=== PATIENT | female | born 1980 | race Caucasian/White ===

== ENCOUNTER 2019-08-23 07:30 | Day surgery (SDC) | payer OTHER ==
[2019-08-22 09:52] VITALS: BMI 29.9
[2019-08-23 08:13] LABS: BASO % 0.6 % (0-2.0); EOS % 3.9 % (0-4.5); HEMOGLOBIN 13.2 GM/dL (10.7-15.3); LYMPH % 35.2 % (8-40); MCH 30.4 pg (25.7-33.7); MCHC 34.8 g/dl (32.0-36.0); MEAN CELL VOLUME 87.3 fl (80-96); MEAN PLT VOLUME 7.6 fl (7.5-11.1); MONO % 9.8 % (3.8-10.2); NEUT % 50.5 % (42.8-82.8); PLATELET COUNT 489 K/MM3 (134-434); RBC 4.35 M/mm3 (3.60-5.2); RDW 12.7 % (11.6-15.6); WHITE BLOOD COUNT 9.1 K/mm3 (4.0-10.0)
[2019-08-23 08:20] LABS: EPI CELLS 6.8 /HPF (0-5/HPF); HYALINE CASTS 20 /lpf (0-8); URINE APPEARANCE CLOUDY; URINE BACTERIA 38.7 /hpf (NEGATIVE); URINE BILIRUBIN NEGATIVE (NEGATIVE); URINE COLOR YELLOW; URINE GLUCOSE (UA) NEGATIVE (NEGATIVE); URINE KETONE NEGATIVE (NEGATIVE); URINE LEUK ESTERASE 1+ (NEGATIVE); URINE NITRITE NEGATIVE (NEGATIVE); URINE PROTEIN NEGATIVE (NEGATIVE); URINE RBC 4 /hpf (0-4); URINE UROBILINOGEN 0.2 mg/dL (0.2-1.0); URINE WBC 36 /hpf (0-5)
[2019-08-23] MEDS ORDERED: MIDAZOLAM HCL 2 MG/2 ML SINGLE DOSE VIAL ONE (08:39)
[2019-08-23] MEDS ORDERED: LIDOCAINE HCL/PF 2% SDV 5ML VIAL ONE (08:39)
[2019-08-23] MEDS ORDERED: PROPOFOL 20 ML ONE (08:39)
[2019-08-23 09:05] LABS: ALBUMIN 3.9 g/dl (3.4-5.0); BILIRUBIN,TOTAL 0.4 mg/dL (0.2-1); BLOOD UREA NITROGEN 13.1 mg/dL (7-18); CALCIUM 8.8 mg/dL (8.5-10.1); CREATININE 0.7 mg/dL (0.55-1.3); TOT PROT 7.6 g/dl (6.4-8.2)
[2019-08-23 09:33] LABS: HCG,QUALITATIVE URINE Positive
[2019-08-23] MEDS ORDERED: ACETAMINOPHEN 325 MG TABLET (FP) PO PRN (09:48)
[2019-08-23] MEDS ORDERED: IBUPROFEN 400 MG TABLET (FP) PO PRN (09:48)
--- NOTE | 2019-08-23 09:48 | HP ---
Satellite [facility] - Chief Complaint Chief Complaint: Missed History of Present Illness: 37 yo G P with usg showng missed for DC History Source: Patient Limitations to Obtaining History: No Limitations - Past Medical History Allergies/Adverse Reactions: Allergies Allergy/AdvReac Type Severity Reaction Status Date / Time No Known Allergies Allergy Verified 08/23/19 08:51 ...LMP: 06/01/19 - Current Medications Current Medications: Home Medications Medication Instructions Recorded Amoxicillin - [Amoxicillin 500mg 500 mg PO BID 08/22/19 Capsule -] Satellite Physical Exam - Physical Examination Vital Signs: Vital Signs Period Temp Pulse Resp BP Sys/Molina Pulse Ox Last 24 Hr 96 16 124/78 99 General Appearance: Well Nourished, Well Developed Lung: Clear to auscultation Heart: Regular rate & rhythm Breasts: Soft, Non-Tender Abdomen: Soft Extremities: No edema Pelvic Exam: Within normal limits External Genitalia, Within normal limits Vagina, Within normal limits Cervix, Within normal limits [place], Other Uterus (enlarged) Neurological: Intact, Alert, Oriented Satellite Impression/Plan - Impression/Plan Impression: Missed Operative Procedure: Suction DC Date to be Performed: 08/23/19
--- NOTE | 2019-08-23 09:51 | OP ---
Operative Note - Note: Operative Date: 08/23/19 Pre-Operative Diagnosis: Missed Operation: Suction DC Post-Operative Diagnosis: Same as Pre-op Anesthesia: General Estimated Blood Loss (mls): 30 Operative Report Dictated: Yes
[2019-08-23] MEDS ORDERED: KETOROLAC TROMETHAMINE 30 MG/1 ML VIAL ONE (10:08)
[2019-08-23] MEDS ORDERED: ONDANSETRON 4 MG/2 ML VIAL IVPUSH PRN (10:52)
[2019-08-23] MEDS ORDERED: oxyCODONE HCL 5 MG TABLET PO PRN ×2 (10:52)
[2019-08-23] MEDS ORDERED: LACTATED RINGERS SOLUTION 1,000 ML IV SCH (11:00)
[2019-08-23 11:37] VITALS: PULSE 70
[2019-08-23 11:47] VITALS: BP 102/67; TEMP 98.6
--- NOTE | 2019-08-23 11:47 | EKG ---
Test Reason : Blood Pressure : / mmHG Vent. Rate : 084 BPM Atrial Rate : 084 BPM P-R Int : 158 ms QRS Dur : 070 ms QT Int : 342 ms P-R-T Axes : 023 018 038 degrees QTc Int : 404 ms NORMAL SINUS RHYTHM NORMAL ECG NO PREVIOUS ECGS AVAILABLE Confirmed by LOIDA DE JESUS, NICHOLAS ([id number]) on 08/23/2019 11:47:36 AM Referred By: Janeen Qureshi Confirmed By:NICHOLAS MARISCAL MD
--- NOTE | 2019-08-24 17:30 | PATH ---
Surgical Pathology Report Patient Name: ADRIENNE WOOD Med. Rec. #: [id number] /Age/Gender: 1980 (Age: 38) / F Account: [id number] Location: [facility] SURGICAL Taken: 08/23/2019 Received: 08/23/2019 Reported: 08/24/2019 Physicians: Janeen Qureshi M.D. Specimen(s) Received PRODUCTS OF CONCEPTION FOR CHROMOSOMAL STUDY Clinical History Missed Final Diagnosis PRODUCTS OF CONCEPTION: CHORIONIC VILLI PRESENT, CONSISTENT WITH PRODUCTS OF CONCEPTION. CHROMOSOME ANALYSIS RESULT PENDING. AN ADDENDUM REPORT TO FOLLOW. Electronically Signed Renan Mckeon M.D. Gross Description Received fresh labeled "products of conception," is a 7.0 x 4.0 x 0.8 cm aggregate of krishnamurthy-red soft tissue fragments. Villous tissue is identified. No definitive somatic tissue is identified. A construction sales representative portion is placed in RPMI solution and sent for chromosomal analysis. An additional construction sales representative portion is submitted in one cassette. /08/23/2019 saudi/08/23/2019
--- NOTE | 2019-08-30 11:22 | OP ---
DATE OF OPERATION: 08/23/2019 PREOPERATIVE DIAGNOSIS: Missed . OPERATION: Suction dilation and curettage. POSTOPERATIVE DIAGNOSIS: Missed . SURGEON: Janeen Qureshi MD ESTIMATED BLOOD LOSS: 30 mL. PROCEDURE: Patient was taken to the operating room, placed in the dorsal lithotomy position, prepped and draped in the usual sterile fashion. Timeout was performed in accordance with hospital regulation. Speculum was placed in the vagina. Anterior lip of the cervix grasped with single-tooth tenaculum. Cervix was then dilated to accommodate the No. 8 suction curet. Suction curettage was then performed followed by sharp curettage. All contents were emptied and submitted to Pathology for chromosomal analysis. All instruments were then removed. Patient tolerated procedure well. Estimated blood loss was 30 mL. JANEEN QURESHI M.D. [id number]
== END 2019-08-23 12:25 | disposition home or self-care (01) ==
LOC: JASU-SURG 07:30
PROVIDERS: ATTEND Obstetrics & Gynecology
PROC: 10D17ZZ Extraction of Products of Conception, Retained, Via Natural or Artificial Opening (ICD-10-PCS; principal; 2019-08-23 09:30)
DX: O02.1 Missed abortion (principal)
CPT/HCPCS: 36415; 80053; 81003; 84702; 84703; 85025; 86850; 86900; 86901; 88305-TC; 93005; 93010; 94760

== ENCOUNTER 2021-01-06 11:55 | Inpatient (IN) | payer OTHER ==
[2021-01-06 13:20] LABS: RETICULOCYTES 2.61 % (0.5-1.5)
[2021-01-06 13:28] LABS: EPI CELLS >36 /uL (0-25.1); HYALINE CASTS 5 /uL (0-3.1); PH,URINE 6.5 (5.0-8.0); URINE APPEARANCE CLOUDY; URINE BACTERIA 327 /uL (0-1359); URINE BILIRUBIN NEGATIVE (NEGATIVE); URINE COLOR YELLOW; URINE GLUCOSE (UA) NEGATIVE (NEGATIVE); URINE KETONE NEGATIVE (NEGATIVE); URINE LEUK ESTERASE TRACE (NEGATIVE); URINE NITRITE NEGATIVE (NEGATIVE); URINE PROTEIN 2+ (NEGATIVE); URINE RBC 12 /uL (0-23.9); URINE UROBILINOGEN 0.2 mg/dL (0.2-1.0); URINE WBC 51 /uL (0-25.8)
[2021-01-06 13:44] LABS: URIC ACID 4.2 mg/dL (2.6-7.2)
[2021-01-06] MEDS ORDERED: LABETALOL HCL 200 MG TABLET (FP) ONE ×2 (13:53→22:03)
[2021-01-06] MEDS ORDERED: CITRIC ACID/SODIUM CITRATE 30 ML UNIT-DOSE CUP PO ONE (13:54)
[2021-01-06] MEDS ORDERED: ELECTROLYTE-148 SOLN 1,000 ML IV SCH (14:00)
[2021-01-06] MEDS: LABETALOL HCL 200 MG TABLET (FP) PO SCH ×2 (14:00→22:00)
[2021-01-06 14:57] VITALS: BMI 35.9
[2021-01-06 15:23] LABS: BASO % 0.4 % (0-2.0); EOS % 1.1 % (0-4.5); LYMPH % 19.7 % (8-40); MCH 30.4 pg (25.7-33.7); MCHC 34.2 g/dl (32.0-36.0); MEAN CELL VOLUME 88.7 fl (80-96); MEAN PLT VOLUME 8.6 fl (7.5-11.1); MONO % 8.5 % (3.8-10.2); NEUT % 70.3 % (42.8-82.8); PLATELET COUNT 379 K/MM3 (134-434); RBC 3.95 M/mm3 (3.60-5.2); RDW 13.8 % (11.6-15.6); WHITE BLOOD COUNT 13.2 K/mm3 (4.0-10.0)
[2021-01-06 15:31] LABS: INR 0.91 (0.83-1.09)
[2021-01-06 15:33] LABS: ACTIVATED PTT 24.5 SECONDS (25.2-36.5)
[2021-01-06 15:44] LABS: CALCIUM 8.9 mg/dL (8.5-10.1)
[2021-01-06 15:45] LABS: BLOOD UREA NITROGEN 8.3 mg/dL (7-18)
[2021-01-06 15:48] LABS: CREATININE 0.5 mg/dL (0.55-1.3)
[2021-01-06] MEDS ORDERED: NALOXONE HCL 0.4 MG/ML VIAL IVPUSH PRN (17:06)
[2021-01-06] MEDS ORDERED: DINOPROSTONE 10 MG VAGINAL SUPPOSITORY VG ONE (18:00)
[2021-01-07] MEDS ORDERED: OXYTOCIN 30 UNITS in 0.9% NS 30 UNIT/500 ML INFUS.BAG IVPB SCH (05:00)
[2021-01-07] MEDS ORDERED: OXYTOCIN 30 UNITS in 0.9% NS 30 UNIT/500 ML INFUS.BAG IVPB ONE (05:20)
[2021-01-07] MEDS: LABETALOL HCL 200 MG TABLET (FP) PO SCH ×3 (06:00→21:52)
[2021-01-07] MEDS ORDERED: LABETALOL HCL 200 MG TABLET (FP) ONE (06:02)
[2021-01-07] MEDS ORDERED: BUTORPHANOL TARTRATE 2 MG/ML VIAL IM PRN (08:40)
[2021-01-07] MEDS ORDERED: PROMETHAZINE HCL 25 MG/1 ML VIAL IVPB PRN (08:56)
[2021-01-07] MEDS ORDERED: FENTANYL/BUPIVACAINE/NS/PF - PCEA - 50 ML DISP.SYRIN EP ONE (11:16)
[2021-01-07] MEDS ORDERED: BUPIVACAINE HCL/PF 0.25% (2.5MG/ML) 10 ML VIAL ONE (11:31)
[2021-01-07] MEDS ORDERED: NALOXONE HCL 0.4 MG/ML VIAL IVPUSH PRN (12:12)
[2021-01-07] MEDS ORDERED: FENTANYL/BUPIVACAINE/NS/PF - PCEA - 50 ML DISP.SYRIN EP SCH (12:15)
[2021-01-07] MEDS: FENTANYL/BUPIVACAINE/NS/PF - PCEA - 50 ML DISP.SYRIN EP SCH ×2 (12:37→17:41)
[2021-01-07] MEDS ORDERED: WITCH HAZEL 50% (TUCKS) 40 PAD/JAR PAD TP PRN (14:34)
[2021-01-07] MEDS ORDERED: BENZOCAINE 20% 57 GM BOTTLE TP PRN (14:34)
[2021-01-07] MEDS ORDERED: METHYLERGONOVINE MALEATE 0.2 MG/1 ML AMP IM PRN (14:34)
[2021-01-07] MEDS ORDERED: diphenhydrAMINE HCL 25 MG CAPSULE (FP) PO PRN ×2 (14:34→16:10)
[2021-01-07] MEDS ORDERED: BENZOCAINE 28 GM HEMORRHOIDAL OINTMENT PR PRN (14:34)
[2021-01-07] MEDS ORDERED: LIDOCAINE HCL/EPINEPHRINE/PF 10 ML VIAL ONE (14:52)
[2021-01-07] MEDS ORDERED: ceFAZolin SODIUM 1 GM VIAL ONE (15:04)
[2021-01-07] MEDS ORDERED: ONDANSETRON 4 MG/2 ML VIAL ONE (15:09)
[2021-01-07] MEDS ORDERED: OXYTOCIN 10 UNITS/ML VIAL ONE (15:14)
[2021-01-07] MEDS ORDERED: morphine SULFATE/PF 0.5 MG/ML (2cc Syringe - QUVA) ONE ×3 (15:22)
[2021-01-07] MEDS ORDERED: OXYTOCIN 20 UNITS in 0.9% NS 20 UNIT/1,000 ML INFUS.BAG IV ONE (15:48)
[2021-01-07] MEDS ORDERED: ONDANSETRON 4 MG/2 ML VIAL IVPUSH PRN (16:03)
[2021-01-07] MEDS ORDERED: IBUPROFEN 600 MG TABLET (FP) PO PRN (16:03)
[2021-01-07] MEDS ORDERED: ACETAMINOPHEN 325 MG TABLET (FP) PO PRN (16:03)
[2021-01-07 17:48] LABS: CORD BASE EXCESS -2.7 mmol/L (0-2); CORD BASE EXCESS -4.9 mmol/L (0-2); CORD HCO3 22.2 mmHg (20-29); CORD HCO3 25.5 mmHg (20-29); CORD PCO2 47.6 mmHg (30-78); CORD PCO2 57.4 mmHg (30-78); CORD pH 7.265 (7.14-7.44); CORD pH 7.286 (7.14-7.44)
[2021-01-08] MEDS ORDERED: IBUPROFEN 800 MG/8 ML IJ IVPB ONE (05:52)
[2021-01-08] MEDS: LABETALOL HCL 200 MG TABLET (FP) PO SCH ×3 (06:03→23:00)
[2021-01-08] MEDS: IBUPROFEN 800 MG/8 ML IJ IVPB PRN ×2 (06:03→17:30)
[2021-01-08] MEDS ORDERED: oxyCODONE HCL 5 MG TABLET PO PRN ×2 (09:00→14:34)
[2021-01-08 09:29] LABS: MCH 30.7 pg (25.7-33.7); MCHC 34.5 g/dl (32.0-36.0); MEAN CELL VOLUME 88.8 fl (80-96); MEAN PLT VOLUME 8.3 fl (7.5-11.1); PLATELET COUNT 299 K/MM3 (134-434); RBC 3.27 M/mm3 (3.60-5.2); RDW 14.2 % (11.6-15.6); WHITE BLOOD COUNT 16.5 K/mm3 (4.0-10.0)
[2021-01-08] MEDS ORDERED: BISACODYL 10 MG SUPP.RECT PR PRN (14:34)
[2021-01-08] MEDS: ACETAMINOPHEN 325 MG TABLET (FP) PO PRN (23:00)
[2021-01-08] MEDS: SIMETHICONE 80 MG TAB.CHEW (FP) PO PRN (23:01)
[2021-01-09] MEDS: IBUPROFEN 600 MG TABLET (FP) PO PRN ×2 (06:04→22:26)
[2021-01-09] MEDS: LABETALOL HCL 200 MG TABLET (FP) PO SCH ×3 (06:04→22:26)
[2021-01-09] MEDS: ACETAMINOPHEN 325 MG TABLET (FP) PO PRN ×2 (06:04→22:26)
[2021-01-09] MEDS: SIMETHICONE 80 MG TAB.CHEW (FP) PO PRN ×2 (06:05→22:27)
[2021-01-09] MEDS ORDERED: SENNOSIDES/DOCUSATE COMBO (SENNA PLUS) TABLET (UD) PO PRN (22:00)
[2021-01-10] MEDS: ACETAMINOPHEN 325 MG TABLET (FP) PO PRN ×2 (06:32→16:00)
[2021-01-10] MEDS: LABETALOL HCL 200 MG TABLET (FP) PO SCH ×3 (06:32→22:12)
[2021-01-10] MEDS: SIMETHICONE 80 MG TAB.CHEW (FP) PO PRN (06:33)
[2021-01-10 08:14] LABS: HEMATOCRIT 27.3 % (32.4-45.2); HEMOGLOBIN 9.6 GM/dL (10.7-15.3); MCH 31.5 pg (25.7-33.7); MCHC 35.2 g/dl (32.0-36.0); MEAN CELL VOLUME 89.4 fl (80-96); MEAN PLT VOLUME 7.8 fl (7.5-11.1); PLATELET COUNT 355 K/MM3 (134-434); RBC 3.05 M/mm3 (3.60-5.2); WHITE BLOOD COUNT 10.3 K/mm3 (4.0-10.0)
[2021-01-11] MEDS: SIMETHICONE 80 MG TAB.CHEW (FP) PO PRN (02:14)
[2021-01-11] MEDS: ACETAMINOPHEN 325 MG TABLET (FP) PO PRN (02:16)
[2021-01-11] MEDS: LABETALOL HCL 200 MG TABLET (FP) PO SCH (06:42)
[2021-01-11] MEDS ORDERED: NIFEdipine E.R. 30 MG TABLET PO SCH (11:45)
[2021-01-11 12:46] VITALS: BP 152/90; PULSE 80; TEMP 98.2
== END 2021-01-11 12:46 | disposition home or self-care (01) | DRG 540 ==
LOC: JDEL 11:55 → JLDR 13:45 → J3W 01-07 17:40
PROVIDERS: ADMIT Obstetrics & Gynecology; ATTEND Obstetrics & Gynecology
PROC: 3E0P7VZ Introduction of Hormone into Female Reproductive, Via Natural or Artificial Opening (ICD-10-PCS; 2021-01-06)
PROC: 10D00Z1 Extraction of Products of Conception, Low, Open Approach (ICD-10-PCS; principal; 2021-01-07)
PROC: 3E033VJ Introduction of Other Hormone into Peripheral Vein, Percutaneous Approach (ICD-10-PCS; 2021-01-07)
DX: O13.3 Gestational [pregnancy-induced] hypertension without significant proteinuria, third trimester (principal); O32.4XX0 Maternal care for high head at term, not applicable or unspecified; O36.63X0 Maternal care for excessive fetal growth, third trimester, not applicable or unspecified; O99.214 Obesity complicating childbirth; E66.9 Obesity, unspecified; Z3A.38 38 weeks gestation of pregnancy; Z37.0 Single live birth
CPT/HCPCS: 36415; 36600; 59025; 80048; 81003; 82803; 82977; 83010; 84450; 84460; 84550; 85025; 85027; 85032; 85045; 85610; 85730; 86780; 86850; 86900; 86901; 88307-TC; C9803; U0003; U0005